=== PATIENT | male | born 1975 ===

== ENCOUNTER 2021-12-13 15:20 | Emergency (ER) | payer SELFPAY ==
--- NOTE | 2021-12-13 16:10 | XRay Report ---
RIGHT HAND 3 VIEW(S) INDICATION / CLINICAL INFORMATION: INJURY COMPARISON: None available. FINDINGS: BONES / JOINT(S): Acute markedly displaced fracture involving the little finger metacarpal head which is rotated 180 degrees and comminuted. No significant arthritis. SOFT TISSUES: Severe laceration/soft tissue amputation 2 tip of index finger. Small radiopaque needle /foreign object along the ulnar aspect of little finger PIP joint. ADDITIONAL FINDINGS: None. Signer Name: Jeff Hart MD Signed: 12/13/2021 4:05 PM Workstation Name: [id number]
[2021-12-13] MEDS ORDERED: HYDROmorphone 1 MG/1 ML INJ ONE (16:47)
[2021-12-13] MEDS ORDERED: HYDROmorphone 1 MG/1 ML INJ IV ONE (16:47)
[2021-12-13] MEDS ORDERED: ONDANSETRON 4 MG/2 ML INJ ONE (16:49)
[2021-12-13] MEDS ORDERED: ONDANSETRON 4 MG/2 ML INJ IM ONE (16:59)
[2021-12-13] MEDS ORDERED: ONDANSETRON 4 MG/2 ML INJ IV ONE (17:02)
[2021-12-13] MEDS ORDERED: TETANUS,DIPH,PERTUSS(ACELL) VACCINE 0.5 ML SYRINGE IM ONE (17:24)
--- NOTE | 2021-12-13 17:38 | Emergency Department Report ---
ED Upper Extremity Inj HPI - General Chief Complaint: Extremity Injury, Upper Stated Complaint: RT HAND ACCIDENT CHAINSAW Time Seen by Provider: 12/13/21 17:19 Source: patient Mode of arrival: Ambulatory Limitations: No Limitations - History of Present Illness Initial Comments: Patient is 46-year-old male presented to the ER for evaluation of right hand injury. Translation by the company significant other. She stated that he was working on a tree and a report of a branch fell on his right hand. Patient with an obvious deformity to the fifth metacarpal. Laceration to the tip of the right index finger and multiple bruises on the dorsum of the right hand. Patient denied any other injuries. Complaint: Injury to:: right, hand -: Sudden, This afternoon Other Extremity Injury: Fingers: Right, Hand: Right Other Injuries: none Place: work Improves With: immobilization Worsens With: immobilization Context: direct blow Associated Symptoms: denies other symptoms - Related Data Allergies Allergy/AdvReac Type Severity Reaction Status Date / Time No Known Allergies Allergy Verified 12/13/21 15:23 ED Review of Systems ROS: Stated complaint: RT HAND ACCIDENT CHAINSAW Other details as noted in HPI Comment: All other systems reviewed and negative Constitutional: denies: chills, fever Respiratory: denies: cough, shortness of breath, SOB with exertion Cardiovascular: denies: chest pain, palpitations Gastrointestinal: denies: abdominal pain, nausea, vomiting Musculoskeletal: denies: back pain Neurological: denies: headache, weakness, numbness, paresthesias, confusion, abnormal gait ED Physical Exam - General Limitations: No Limitations General appearance: alert, in no apparent distress - Head Head exam: Present: atraumatic, normocephalic, normal inspection - Eye Eye exam: Present: normal appearance - ENT ENT exam: Present: normal exam, normal orophraynx, mucous membranes moist - Neck Neck exam: Present: normal inspection, full ROM. Absent: tenderness, meningismus - Respiratory Respiratory exam: Present: normal lung sounds bilaterally - Cardiovascular Cardiovascular Exam: Present: regular rate, normal rhythm, normal heart sounds - GI/Abdominal GI/Abdominal exam: Present: soft, normal bowel sounds. Absent: distended, tenderness, guarding, rebound, rigid, organomegaly, mass, bruit, pulsatile mass, hernia - Extremities Exam Extremities exam: Present: full ROM, normal capillary refill. Absent: tenderness - Expanded Upper Extremity Exam Right Hand Wrist exam: Present: tenderness, other (laceration to the tip of the right index finger.) Neuro motor exam: Present: wrist extension intact, thumb opposition intact, thumb IP flexion intact, thumb adduction intact, fingers 2-5 abduction intact Neurosensory exam: Present: 2-point discrimination, radial nerve intact, ulnar nerve intact Vascular: Present: normal capillary refill - Back Exam Back exam: Present: normal inspection, full ROM. Absent: CVA tenderness (R), CVA tenderness (L) - Neurological Exam Neurological exam: Present: alert, oriented X3, CN II-XII intact, normal gait, reflexes normal. Absent: motor sensory deficit - Skin Skin exam: Present: abrasion, ecchymosis, other (laceration.) ED Course Vital Signs 12/13/21 12/13/21 12/13/21 15:21 15:56 16:00 Temperature 98 F Pulse Rate 81 Respiratory 18 Rate Blood Pressure 133/91 133/91 Blood Pressure 128/86 [Left] O2 Sat by Pulse 100 100 100 Oximetry 12/13/21 12/13/21 12/13/21 16:16 16:30 19:35 Temperature 97.6 F Pulse Rate 89 Respiratory 16 Rate Blood Pressure 133/91 133/91 Blood Pressure 127/88 [Left] O2 Sat by Pulse 100 86 97 Oximetry - Moderate Sedation Indications: fracture/dislocation redu ASA Class: II Mallampati Airway Score: 4 Preparation: teletypesetter monitor applied, pulse oximeter, capnometry used, supplemental O2 applied, reversal agents at bedside, suction/airway equipment at bedside, IV secured Fentanyl: IV Midazolam: IV IV Etomidate Dose (mgs): 6.8 Complications: none Patient Tolerated Procedure: well, no complications - Orthopedic Fracture Reduction Fracture #1 Consent Obtained: written consent Time Out Performed: Yes Side: right Fracture Reduction Location: metacarpal Analgesia: moderate sedation Technique: direct manipulation Post Reduction X-rays Demonstrate: other (Not reduced.) Post-Reduction Neuro Exam: intact Post-Reduction Vascular Exam: intact Splint Applied: Yes Patient Tolerated Procedure: well, no complications ED Medical Decision Making - Radiology Data Radiology results: report reviewed - Medical Decision Making Patient is 46-year-old male presented to the ER for evaluation of right hand injury. Translation by the company significant other. She stated that he was working on a tree and a report of a branch fell on his right hand. Patient with an obvious deformity to the fifth metacarpal. Laceration to the tip of the right index finger and multiple bruises on the dorsum of the right hand. Patient denied any other injuries. Right hand x-ray showed comminuted fracture at the fifth metacarpal joint with 180 degree rotation. The tip of the index finger with nail is hanging on a small piece of skin that is an survival so it was removed. Using moderate sedation patient given Versed, etomidate and attempted to reduce the dislocated fifth metacarpal head however was unsuccessful. Patient and his strongly advised to follow-up with for further management. Ulnar gutter applied with no difficulties. Patient advised to return to the ER if he develop any new symptoms. Critical care attestation.: If time is entered above; I have spent that time in minutes in the direct care of this critically ill patient, excluding procedure time. ED Disposition Clinical Impression: Displaced fracture of neck of right fifth metacarpal bone Disposition: 01 HOME / SELF CARE / HOMELESS Is pt being admited?: No Condition: Stable Instructions: Cast or Splint Care, Adult, [id number], Metacarpal Fracture, Moderate Conscious Sedation, Adult Referrals: DONAVAN ALCANTARA MD [Staff Physician] - 3-5 Days
[2021-12-13] MEDS ORDERED: LIDOCAINE 2%/EPINEPHRINE 1:100,000 VIAL (20 ML) INFILTRATI ONE (17:42)
[2021-12-13] MEDS ORDERED: SODIUM CHLORIDE 0.9% 1000 ML 1,000 ML IV ONE (17:51)
[2021-12-13] MEDS ORDERED: MIDAZOLAM 5 MG/5 ML INJ MDV IV SCH (18:00)
[2021-12-13] MEDS ORDERED: ETOMIDATE 20 MG/10 ML INJ IV ONE (18:31)
[2021-12-13 19:36] VITALS: BP 127/88
--- NOTE | 2021-12-13 20:20 | XRay Report ---
RIGHT HAND 3 VIEWS INDICATION / CLINICAL INFORMATION: Right hand injury, postreduction film. COMPARISON: Earlier the same day. FINDINGS: BONES / JOINT(S): Fracture at the fifth metatarsal head again noted. The distal fragment remains rota henrry 180 degrees. No significant arthritis. SOFT TISSUES: Soft tissue injury distal portion of the second digit and small radiopaque foreign body along the lateral aspect of the proximal interphalangeal joint of the fifth digit remain. ADDITIONAL FINDINGS: None. Signer Name: Luis Oliveira MD Signed: 12/13/2021 8:16 PM Workstation Name: [id number]
== END 2021-12-13 21:51 | disposition home or self-care (01) ==
LOC: ED 15:20
DX: S62.336A Displaced fracture of neck of fifth metacarpal bone, right hand, initial encounter for closed fracture (principal); X58.XXXA Exposure to other specified factors, initial encounter; Y93.89 Activity, other specified; Y92.89 Other specified places as the place of occurrence of the external cause; Y99.8 Other external cause status
CPT/HCPCS: 26605; 36415; 73120; 73130; 90471; 90715; 96365; 96375; 99283; J0690; J1170; J2250; J2405; J3490; J7030; 80320; Q0162; G0480